=== PATIENT | female | born 1965 | race Caucasian/White ===

== ENCOUNTER → 2021-09-03 | Outpatient (CLI) | payer OTHER ==
[~2021-09-03] MED LIST: TESSALON PERLE100 MG PO; VENTOLIN HFA 66.7 GM INH; VIBRAMYCIN100 MG PO; ZOFRAN 4 MG TAB4 MG PO
== END ==
LOC: KOH-I 10:22
DX: M54.40 Lumbago with sciatica, unspecified side (principal); M51.36 Other intervertebral disc degeneration, lumbar region
CPT/HCPCS: 72100

== ENCOUNTER 2022-08-08 08:43 | Emergency (ER) | payer OTHER ==
[2022-08-08 12:02] LABS: HEMOGLOBIN 15.1 gm/dl (12.3-15.3); RED BLOOD COUNT 4.64 M/UL (4.00-5.10); WHITE BLOOD COUNT 6.6 K/UL (4.5-11.0)
[2022-08-08 12:19] LABS: BUN/CREATININE RATIO 21 (0-10)
[2022-08-08] MEDS ORDERED: CEPHALEXIN500 M1 PO (13:38)
[2022-08-08] MEDS ORDERED: ONDANSETRON ODT4 MG SL (13:38)
== END 2022-08-08 15:55 | disposition home or self-care (01) ==
LOC: ER1 08:43
PROVIDERS: Student in an Organized Health Care Education/Training Program
DX: N39.0 Urinary tract infection, site not specified (principal); R31.9 Hematuria, unspecified; R19.7 Diarrhea, unspecified; E78.5 Hyperlipidemia, unspecified; G62.9 Polyneuropathy, unspecified; K21.9 Gastro-esophageal reflux disease without esophagitis; F17.200 Nicotine dependence, unspecified, uncomplicated; Z79.899 Other long term (current) drug therapy
CPT/HCPCS: 80053; 81001; 83690; 85025; 87086; 96361; 96374; 96375; 99284; J1885; J2405